=== PATIENT | female | born 1980 | race Caucasian/White ===

== ENCOUNTER 2018-08-20 11:42 | Emergency (ER) | payer OTHER ==
[~2018-08-20] VITALS: Ht 154.9 cm; Wt 71.2 kg
[2018-08-20 11:43] VITALS: BP 145/90
[2018-08-20] MEDS ORDERED: CLEO300C2 PO (12:33)
== END 2018-08-20 12:41 | disposition home or self-care (01) ==
LOC: M ED 11:42
DX: L03.116 Cellulitis of left lower limb (principal); F41.9 Anxiety disorder, unspecified; F32.9 Major depressive disorder, single episode, unspecified; Z88.2 Allergy status to sulfonamides

== ENCOUNTER 2018-08-29 18:46 | Emergency (ER) | payer OTHER ==
[~2018-08-29] VITALS: Ht 157.5 cm; Wt 75.0 kg
[~2018-08-29 18:46] MED LIST: CLEO300C2 PO
[2018-08-29] MEDS ORDERED: diphenhydrAMINE INJ 50MG/ML VIAL (J1200) IM ONE (20:00)
[2018-08-29] MEDS ORDERED: HALOPERIDOL 5 MG/ML VIAL (J1630) IM ONE (20:00)
[2018-08-29 21:14] LABS: HCG, SERUM QUALITATIVE NEGATIVE (NEGATIVE)
[2018-08-29 21:19] LABS: AMPHETAMINES LEVEL URINE POSITIVE (NEGATIVE); BARBITURATES URINE NEGATIVE (NEGATIVE); BENZODIAZEPINES URINE NEGATIVE (NEGATIVE); CANNABINOIDS URINE NEGATIVE (NEGATIVE); COCAINE METABOLITE URINE NEGATIVE (NEGATIVE); METHADONE URINE NEGATIVE (NEGATIVE); OPIATES URINE NEGATIVE (NEGATIVE); PHENCYCLIDINE URINE NEGATIVE (NEGATIVE)
[2018-08-29 21:50] LABS: HEMATOCRIT 39.3 % (36.0-47.0); HEMOGLOBIN 13.3 g/dl (12.0-15.5); MEAN CORPUSCULAR HGB CONC 33.8 g/dl (32.0-36.5); MEAN CORPUSCULAR VOLUME 88.5 fl (80.0-96.0); PLATELET COUNT, AUTOMATED 336 10^3/uL (150-450); RED BLOOD COUNT 4.44 10^6/uL (4.00-5.40); WHITE BLOOD COUNT 12.6 10^3/uL (4.0-10.0)
[2018-08-29 21:55] LABS: ACETAMINOPHEN LEVEL < 2.0 UG/ML (10.0-30.0); ALT/SGPT 16 U/L (12-78); BILIRUBIN,DIRECT 0.2 MG/DL (0.0-0.2); BILIRUBIN,TOTAL 1.4 MG/DL (0.2-1.0); BLOOD UREA NITROGEN 12 MG/DL (7-18); CALCIUM LEVEL 8.9 MG/DL (8.5-10.1); CARBON DIOXIDE LEVEL 27 MEQ/L (21-32); CHLORIDE LEVEL 100 MEQ/L (98-107); CPK CREATINE PHOSPHOKINASE 128 U/L (26-192); CREATININE FOR GFR 0.83 MG/DL (0.55-1.30); ETHYL ALCOHOL (ETHANOL) < 0.003 % (0.000-0.010); GLOMERULAR FILTRATION RATE > 60.0 (>60); GLUCOSE, FASTING 99 MG/DL (70-100); POTASSIUM SERUM 3.6 MEQ/L (3.5-5.1); SALICYLATE LEVEL < 1.7 MG/DL (5.0-30.0); SODIUM LEVEL 136 MEQ/L (136-145); TOTAL PROTEIN 7.4 GM/DL (6.4-8.2)
[2018-08-30 13:21] VITALS: BP 136/77
--- NOTE | 2018-08-31 18:39 | ECGEPIP ---
Stationary ECG Study [facility] - ED Test Date: 2018-08-29 Pat Name: CHERYL HO Department: Room: - Gender: F Industrial Relations Analyst: yogesh : 1980 Requested By: ATIF BECKETT Order Number: [id number] Reading MD: Lu Enamorado Measurements Intervals [place] Rate: 88 P: 19 MT: 136 QRS: 26 QRSD: 83 T: 18 QT: 382 QTc: 462 Interpretive Statements SINUS RHYTHM NSTTW ABNORMALITY NO PRIOR FOR COMPARISON Electronically Signed On 08-31-2018 18:39:28 EST by Lu Enamorado
== END 2018-08-30 13:21 ==
LOC: M ED 18:46
DX: Z04.6 Encounter for general psychiatric examination, requested by authority (principal); F29 Unspecified psychosis not due to a substance or known physiological condition; F15.10 Other stimulant abuse, uncomplicated; F31.9 Bipolar disorder, unspecified
CPT/HCPCS: 80048; 80076; 80307; 81001; 82550; 84443; 84703; 85027; 93005; 96372; 99285; G0480; J1200; J1630